=== PATIENT | female | born 1995 | race Two or more races ===

== ENCOUNTER 2018-04-06 13:09 | Emergency (ER) | payer OTHER ==
[~2018-04-06] VITALS: Ht 160 cm; Wt 54.4 kg
[2018-04-06 13:09] VITALS: BP 111/62
[2018-04-06] MEDS ORDERED: IBUPROFEN 600 MG TABLET PO ONE ×2 (14:30)
== END 2018-04-06 16:16 | disposition home or self-care (01) ==
LOC: ER 13:11
DX: M79.642 Pain in left hand (principal); Z88.0 Allergy status to penicillin; V19.9XXA Pedal cyclist (driver) (passenger) injured in unspecified traffic accident, initial encounter; Y93.89 Activity, other specified; Y92.89 Other specified places as the place of occurrence of the external cause; Y99.8 Other external cause status
CPT/HCPCS: 73110; 73130-TC